=== PATIENT | male | born 1995 | race Caucasian/White ===

== ENCOUNTER 2017-05-20 15:23 | Inpatient (IN) | payer BC ==
[~2017-05-20] VITALS: Ht 188 cm; Wt 80.2 kg
[2017-05-20] MEDS ORDERED: KETOROLAC TROMETHAMINE 30 MG/ML VIAL IM STA (15:35)
--- NOTE | 2017-05-20 15:37 | EMERGENCY ROOM VISIT NOTE ---
History Report prepared by Esther: Ewa Singletary Under the Supervision of: Dr. Severino Ellsworth M.D. First contact with patient: 15:26 Stated Complaint: RIB PAIN/SOB History of Present Illness The patient is a 22 year old male who presents to the Emergency Room with complaints of left rib pain beginning at 1500 today. He was playing lacrosse when he was hit with a stick on the left side of his back and chest. The patient rates his pain as a 9/10 in severity and states it is "sharp." He has SOB but denies any abdominal pain, LOC, or hitting his head. When asked, the patient denies wanting anything for pain. Source of History: patient, EMS Onset: 1500 today Position: other (left ribs) Symptom Intensity: 9/10 in severity Quality: sharp Associated Symptoms: + SOB, No LOC Review of Systems See HPI for pertinent positives and negatives. A total of ten systems were reviewed and were otherwise negative. Past Medical & Surgical Medical Problems: (1) Pneumothorax, left Family History Patient reports no known family medical history. Social History Smoking Status: Unknown if Ever Smoked Smokeless Tobacco Use: Unknown Occupation Status: student Current/Historical Medications No Active Prescriptions or Reported Meds Allergies Coded Allergies: Sulfa Antibiotics (Unverified Adverse Reaction, Intermediate, ITCHY, ) Physical Exam Vital Signs Date Time Temp Pulse Resp B/P (MAP) Pulse Ox O2 Delivery O2 Flow Rate FiO2 05/20/17 17:39 79 18 137/76 100 Non-Rebreather 05/20/17 16:34 79 18 131/75 96 Room Air 05/20/17 15:37 87 05/20/17 15:32 36.7 89 20 153/86 96 Room Air Physical Exam Physical Exam GENERAL: He is oriented to person, place, and time. He appears well-developed and well-nourished. He does not appear distressed. ____ HENT: Exam performed. Head: Normocephalic and atraumatic. Right Ear: External ear normal. No mastoid tenderness. Left Ear: External ear normal. No mastoid tenderness. Mouth/Throat: The oropharynx is clear and moist. No trismus in the jaw. No dental abscesses or uvula swelling. No oropharyngeal exudate or tonsillar abscesses. ____ EYES: Conjunctivae and EOM are normal. Pupils are equal, round, and reactive to light. Right eye exhibits no discharge. Left eye exhibits no discharge. No scleral icterus. ____ NECK: Normal range of motion. Neck supple. No JVD present. No spinous process tenderness present. No carotid bruit present. No rigidity. No tracheal deviation and normal range of motion present. No Brudzinski's sign and no Kernig 's sign noted. ____ CV: Normal rate, regular rhythm, normal heart sounds and intact distal pulses. There is no peripheral edema. Palpable radial pulses bue. ____ PULM/CHEST: Effort normal and breath sounds normal. No respiratory distress. No stridor. He has no wheezes. He has no rales. Chest Wall: Pain on palpation of the left lateral ribs 4-10 ABD: The abdomen is soft. Bowel sounds are normal. He has no distension. No mass is present. There is no tenderness. There is no rebound, no guarding, no Islas's sign and no tenderness at McBurney's point. Rovsig negative MUSC/SKEL: Normal range of motion. There is no peripheral edema, tenderness or deformity. LYMPH: No cervical adenopathy. ____ NEURO: He is alert and oriented to person, place, and time. He has normal strength. No cranial nerve deficit or sensory deficit. Coordination and gait normal. GCS eye subscore is 4. GCS verbal subscore is 5. GCS motor subscore is 6. Cerebellar tests wnl. ____ SKIN: Skin is warm and dry. He is not diaphoretic. ____ PSYCH: He has a normal mood and affect. His behavior is normal. Judgment and thought content normal. ____ Medical Decision & Procedures ER Provider Diagnostic Interpretation: Radiology results as stated below per my review and radiologist interpretation: L RIBS UNILATERAL WITH PA CHEST CLINICAL HISTORY: rib pain got hit with lacrosse stick 30 mins ago COMPARISON STUDY: None. FINDINGS: Small left apical pneumothorax demonstrating a maximal pleural gap of 3.5 cm. The heart is normal in size. The right lung is clear. No pleural effusions. No definite rib fracture identified. Hazy appearance to the left lung base may be due to overlapping soft tissue. IMPRESSION: 1. Small left pneumothorax with a maximal pleural gap of 3.5 cm. No mediastinal shift. 2. No definite rib fractures identified. However, given the pneumothorax, an occult left sided rib fracture is suspected. 3. Hazy appearance the left lower lung zone which could be due to overlapping soft tissue. Consider PA and lateral views of the chest once the patient is stabilized to exclude the possibility of a lung abnormality/contusion. Electronically signed by: Dejuan Lorenzo M.D. 05/20/2017 5:02 PM Dictated Date/Time: 05/20/2017 4:54 PM CHEST ONE VIEW PORTABLE HISTORY: left pneumothorax COMPARISON: Chest 05/20/2017. FINDINGS: Small left apical pneumothorax is not significant changed. This demonstrates a maximal pleural gap of 3.5 cm. Hazy appearance to the left lower lung zone. Right lung remains clear. The heart is normal in size. No pleural effusions. No mediastinal shift. IMPRESSION: 1. Small to moderate left apical pneumothorax is similar to the prior study. 2. Nonspecific hazy appearance at the left lower lung zone also persists. This could represent atelectasis from the collapsing lung. Electronically signed by: Dejuan Lorenzo M.D. 05/20/2017 6:30 PM Dictated Date/Time: 05/20/2017 6:27 PM Laboratory Results 05/20/17 17:35 Red Blood Count 5.00, Mean Corpuscular Volume 90.2, Mean Corpuscular Hemoglobin 31.4, Mean Corpuscular Hemoglobin Concent 34.8, Mean Platelet Volume 8.8, Neutrophils (%) (Auto) 85.5, Lymphocytes (%) (Auto) 8.0, Monocytes (%) (Auto) 6.1, Eosinophils (%) (Auto) 0.0, Basophils (%) (Auto) 0.1, Neutrophils # (Auto) 10.87, Lymphocytes # (Auto) 1.02, Monocytes # (Auto) 0.78, Eosinophils # (Auto) 0.00, Basophils # (Auto) 0.01 05/20/17 17:35 Test 05/20/17 17:35 White Blood Count 12.72 K/uL (4.8-10.8) Red Blood Count 5.00 M/uL (4.7-6.1) Hemoglobin 15.7 g/dL (14.0-18.0) Hematocrit 45.1 % (42-52) Mean Corpuscular Volume 90.2 fL (80-100) Mean Corpuscular Hemoglobin 31.4 pg (25-34) Mean Corpuscular Hemoglobin Concent 34.8 g/dl (32-36) Platelet Count 244 K/uL (130-400) Mean Platelet Volume 8.8 fL (7.4-10.4) Neutrophils (%) (Auto) 85.5 % Lymphocytes (%) (Auto) 8.0 % Monocytes (%) (Auto) 6.1 % Eosinophils (%) (Auto) 0.0 % Basophils (%) (Auto) 0.1 % Neutrophils # (Auto) 10.87 K/uL (1.4-6.5) Lymphocytes # (Auto) 1.02 K/uL (1.2-3.4) Monocytes # (Auto) 0.78 K/uL (0.11-0.59) Eosinophils # (Auto) 0.00 K/uL (0-0.5) Basophils # (Auto) 0.01 K/uL (0-0.2) RDW Standard Deviation 41.6 fL (36.4-46.3) RDW Coefficient of Variation 12.7 % (11.5-14.5) Immature Granulocyte % (Auto) 0.3 % Immature Granulocyte # (Auto) 0.04 K/uL (0.00-0.02) Anion Gap 3.0 mmol/L (3-11) Est Creatinine Clear Calc Drug Dose 131.6 ml/min Estimated GFR () 123.9 Estimated GFR (Non- 106.9 BUN/Creatinine Ratio 16.1 (10-20) Calcium Level 10.0 mg/dl (8.5-10.1) Medications Administered Medications (Trade) Dose Ordered Sig/Shaista Route Start Time Stop Time Status Last Admin Dose Admin Ketorolac Tromethamine (Toradol Inj) 15 mg NOW STAT IM 05/20/17 15:35 05/20/17 15:36 DC 05/20/17 15:39 15 MG Sodium Chloride 1,000 ml @ 125 mls/hr Q8H STAT IV 05/20/17 17:27 05/21/17 01:26 05/20/17 17:39 125 MLS/HR Morphine Sulfate (MoRPHine SULFATE INJ) 1 mg Q1H PRN IV 05/20/17 18:15 06/03/17 18:14 05/20/17 19:34 1 MG Procedure Bedside FAST exam performed with ultrasound. Views were obtained in the hepatorenal subxyphoid splenorenal and suprapubic windows. No free fluid in the abdomen. No pericardial tamponade. ECG Per My Interpretation Indication: other (rib pain) Rate (beats per minute): 88 Rhythm: sinus rhythm Findings: other (DE interval 110 QRS interval 174 QTC 515. Early repolarization changes present, possible delta wave in leads V4-V6 concerning for WPW ) Change: Repeat EKG done at 1620 shows sinus rhythm, rate of 80, DE interval 114, QRS 174 , QTC 491, possible delta wave in leads V4-V6 concerning for WPW Repeat EKG done at 1621 shows sinus rhythm, rate of 80, DE interval 98, QRS 142 , QTC 475, possible delta wave concerning for WPW ED Course 1527: The patient was evaluated in room B6. A complete history and physical exam was performed. 1535: Toradol Inj 15 mg IM 1705: Patient has s small apical pneumothorax. Pneumothorax is very small, patient is in no acute respiratory distress and I do not plan on putting in chest tube. Patient and family are visiting from out of town in [place]. If needed be, they stated they would be more than willing to admit to hospital. I discussed this with the [facility] team physician and [facility] team physician and they are in agreement. I also discussed with all parties about the patient's EKG showing a possible WPW pattern. The patient states he has never had syncope or palpitations while working out. The [facility] team physician states that all players on the team have baseline EKGs and the patient has had an EKG before which shows no known abnormalities to his knowledge. He was given copies of the patient's EKG with the patient and family's permission and states he will have the cardiology team that helps manage the lacrosse team at [facility] follow-up with the patient. 172: I discussed the patient's case with Dr. Haines, [facility]. he agrees no chest tube and he will evaluate the patient 1727: Sodium Chloride 1000 ml @ 125 mls/hr 1815: Dr. Haines at bedside. Repeat chest x-ray showed no significant worsening in the size of the pneumothorax and. Dr. Haines says he will admit the patient. The family, both team doctors, and the patient are in agreement. Bedside fast exam negative Medical Decision 1705: Patient has s small apical pneumothorax. Pneumothorax is very small, patient is in no acute respiratory distress and I do not plan on putting in chest tube. Patient and family are visiting from out of town in [place]. If needed be, they stated they would be more than willing to admit to hospital. I discussed this with the [facility] team physician and [facility] team physician and they are in agreement. I also discussed with all parties about the patient's EKG showing a possible WPW pattern. The patient states he has never had syncope or palpitations while working out. The [facility] team physician states that all players on the team have baseline EKGs and the patient has had an EKG before which shows no known abnormalities to his knowledge. He was given copies of the patient's EKG with the patient and family's permission and states he will have the cardiology team that helps manage the lacrosse team at [facility] follow-up with the patient. 1722: I discussed the patient's case with Dr. Haines, [facility]. he agrees no chest tube and he will evaluate the patient 1727: Sodium Chloride 1000 ml @ 125 mls/hr 1815: Dr. Haines at bedside. Repeat chest x-ray showed no significant worsening in the size of the pneumothorax and. Dr. Haines says he will admit the patient. The family, both team doctors, and the patient are in agreement. Bedside fast exam negative Medication Reconcilliation Current Medication List: was personally reviewed by me Blood Pressure Screening Patient's blood pressure: Elevated blood pressure Blood pressure disposition: Elevated BP felt to be situational Consults Time Called: 171 Consulting Physician: Dr. Haines, [facility] Returned Call: 1722 I discussed the patient's case with Dr. Haines [facility]. He will come and evaluate the patient. Impression Primary Impression: Pneumothorax Additional Impression: WPW (Syxji-Lgdzopitf-Awlux syndrome) Scribe Attestation The scribe's documentation has been prepared under my direction and personally reviewed by me in its entirety. I confirm that the note above accurately reflects all work, treatment, procedures, and medical decision making performed by me. The chart was completed utilizing [employer] Speech voice recognition software. Grammatical errors, random word insertions, pronoun errors, and incomplete sentences are an occasional consequence of this system due to software limitations, ambient noise, and hardware issues. Any formal questions or concerns about the content, text, or information contained within the body of this dictation should be directly addressed to the physician for clarification. Departure Information Dispostion Being Evaluated By Hospitalist (Dr. Haines, [facility]) Prescriptions No Active Prescriptions or Reported Meds Problem Qualifiers Primary Impression: Pneumothorax Pneumothorax type: traumatic Encounter type: initial encounter Qualified Codes: S27.0XXA - Traumatic pneumothorax, initial encounter
--- NOTE | 2017-05-20 17:03 | DIAGNOSTIC IMAGING REPORT ---
L RIBS UNILATERAL WITH PA CHEST CLINICAL HISTORY: rib pain got hit with lacrosse stick 30 mins ago COMPARISON STUDY: None. FINDINGS: Small left apical pneumothorax demonstrating a maximal pleural gap of 3.5 cm. The heart is normal in size. The right lung is clear. No pleural effusions. No definite rib fracture identified. Hazy appearance to the left lung base may be due to overlapping soft tissue. IMPRESSION: 1. Small left pneumothorax with a maximal pleural gap of 3.5 cm. No mediastinal shift. 2. No definite rib fractures identified. However, given the pneumothorax, an occult left sided rib fracture is suspected. 3. Hazy appearance the left lower lung zone which could be due to overlapping soft tissue. Consider PA and lateral views of the chest once the patient is stabilized to exclude the possibility of a lung abnormality/contusion. Electronically signed by: Dejuan Lorenzo M.D. 05/20/2017 5:02 PM Dictated Date/Time: 05/20/2017 4:54 PM
[2017-05-20] MEDS ORDERED: SODIUM CHLORIDE 0.9% 1000ML 1,000 ML IV STA (17:27)
[2017-05-20 17:48] LABS: BASO % 0.1 %; BASO ABS # 0.01 K/uL (0-0.2); HEMATOCRIT 45.1 % (42-52); HEMOGLOBIN 15.7 g/dL (14.0-18.0); IG# 0.04 K/uL (0.00-0.02); LYMPH ABS # 1.02 K/uL (1.2-3.4); MEAN CELL VOLUME 90.2 fL (80-100); MEAN CORPUSCULAR HEMOGLOBIN 31.4 pg (25-34); MEAN CORPUSCULAR HGB CONC 34.8 g/dl (32-36); MEAN PLATELET VOLUME 8.8 fL (7.4-10.4); MONO % 6.1 %; MONO ABS # 0.78 K/uL (0.11-0.59); NEUT % 85.5 %; NEUT ABS # 10.87 K/uL (1.4-6.5); PLATELET COUNT 244 K/uL (130-400); RED CELL DISTRIBUTION WIDTH CV 12.7 % (11.5-14.5); RED CELL DISTRIBUTION WIDTH SD 41.6 fL (36.4-46.3); WHITE BLOOD COUNT 12.72 K/uL (4.8-10.8)
[2017-05-20 18:05] LABS: CREATININE 0.99 mg/dl (0.60-1.40); POTASSIUM 4.3 mmol/L (3.5-5.1)
[2017-05-20] MEDS ORDERED: KETOROLAC TROMETHAMINE 15 MG/ML VIAL IV PRN (18:15)
[2017-05-20] MEDS ORDERED: ACETAMINOPHEN 325 MG TAB PO PRN (18:15)
--- NOTE | 2017-05-20 18:32 | DIAGNOSTIC IMAGING REPORT ---
CHEST ONE VIEW PORTABLE HISTORY: left pneumothorax COMPARISON: Chest 05/20/2017. FINDINGS: Small left apical pneumothorax is not significant changed. This demonstrates a maximal pleural gap of 3.5 cm. Hazy appearance to the left lower lung zone. Right lung remains clear. The heart is normal in size. No pleural effusions. No mediastinal shift. IMPRESSION: 1. Small to moderate left apical pneumothorax is similar to the prior study. 2. Nonspecific hazy appearance at the left lower lung zone also persists. This could represent atelectasis from the collapsing lung. Electronically signed by: Dejuan Lorenzo M.D. 05/20/2017 6:30 PM Dictated Date/Time: 05/20/2017 6:27 PM
[2017-05-20 18:55] VITALS: O2SAT 99; Ht 188 cm; Wt 80.2 kg
[2017-05-20] MEDS: MoRPHine SULFATE 2 MG/ML CARP IV PRN ×3 (19:34→23:47)
[2017-05-20 19:45] VITALS: BP 138/75; PULSE 66; TEMP 36.8; O2SAT 99
[2017-05-20 20:18] LABS: INR 1.1 (0.9-1.1); PTT PATIENT 25.1 SECONDS (21.0-31.0)
--- NOTE | 2017-05-20 20:20 | HISTORY & PHYSICAL EXAMINATION ---
DATE OF ADMISSION: 05/20/2017 REASON FOR CONSULTATION: Traumatic left pneumothorax. HISTORY OF PRESENT ILLNESS: This is a 22-year-old healthy nonsmoking male who is a senior at [employer], and in a lacrosse game with [employer] today, patient suffered a blunt trauma to his left mid back. He had immediate pain. He played several more minutes; however, he developed increasing pain and was brought here to the Emergency Room where he was found to have a pneumothorax. It appears to be at least 3 cm from the apex. The patient really has no shortness of breath. He is on 100% nonrebreather at 100% saturations. Vital signs are stable. His parents and the team doctor from [employer] are present at the bedside. PAST MEDICAL HISTORY: None. PAST SURGICAL HISTORY: None. MEDICATIONS: Motrin p.r.n. ALLERGIES: SULFA ANTIBIOTICS WHICH RESULT IN HIVES. 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 He does not smoke. FAMILY MEDICAL HISTORY: The patient is one of 8 siblings, all of whom are healthy. His parents are at the bedside and healthy. REVIEW OF SYSTEMS: 10 systems are reviewed. The patient really has no medical issues other than some pain as would be expected from playing Lacrosse. He has never had an operation. PHYSICAL EXAMINATION: GENERAL: This is a well-developed and well-nourished male who stands 6 feet 2 inches tall and weighs 177 pounds. He is awake and alert. HEENT: His extraocular movements are intact. Pupils are equal, round, and reactive. Sclerae are anicteric. Tongue is midline. Teeth are in excellent repair. NECK: Supple. He has no tracheal deviation, no neck vein distention. RESPIRATORY: He does have mildly decreased breath sounds on the left side. CARDIOVASCULAR: He has a regular rate and rhythm, and his heart rate is in 70s. MUSCULOSKELETAL: I inspected his back. He has no crepitus, no ecchymosis. GASTROINTESTINAL: His abdomen is soft and nontender. EXTREMITIES: He has no peripheral edema. He has no joint effusions. He has excellent peripheral pulses. NEUROLOGIC: He is awake, alert, oriented, and without focal deficits. ASSESSMENT AND PLAN: Traumatic left chest trauma with resultant pneumothorax. We are going to admit him given the size of this and keep him on oxygen and check another film in the morning. If it is stable, we will let him go home with his parents in the morning. If not, he may require a chest tube.
[2017-05-20 23:10] VITALS: BP 124/68; PULSE 64; TEMP 36.7; O2SAT 99
[2017-05-21 07:00] VITALS: BP 127/72; PULSE 53; TEMP 36.7; O2SAT 99
--- NOTE | 2017-05-21 08:55 | DIAGNOSTIC IMAGING REPORT ---
CHEST ONE VIEW PORTABLE CLINICAL HISTORY: 22 years-old Male presenting with Pneumothorax. TECHNIQUE: Portable upright AP view of the chest was obtained. COMPARISON: None. FINDINGS: Cardiomediastinal silhouette normal. Persistent moderate left apical pneumothorax with a pleural separation of 3.8 cm, slightly increased from prior. Additionally, suggestion of a opacity in the left lower lung. There may be central cavitation. Osseous structures normal. Upper abdomen normal. IMPRESSION: 1. Persistent moderate left apical pneumothorax, which is stable to slightly increased from prior. 2. Suggestion of a left basilar infiltrate with possible central cavitation. Further evaluation with chest CT is recommended. The report will be called/faxed according to standard departmental protocol. Electronically signed by: Tristan Gonzales M.D. 05/21/2017 8:54 AM Dictated Date/Time: 05/21/2017 8:52 AM
[2017-05-21] MEDS ORDERED: ENOXAPARIN 40 MG/0.4 ML SYR SQ SCH (09:00)
[2017-05-21] MEDS ORDERED: ULT50X PO (09:16)
--- NOTE | 2017-05-21 09:22 | Discharge Instructions ---
Discharge Instructions Date of Service May 21, 2017. Visit Reason for Visit: Pneumothorax, Left Discharge Discharge Diagnosis / Problem: blunt chest trauma with left pneumothorax Discharge Goals Goal(s): Decrease discomfort Activity Recommendations Activity Limitations: as noted below Lifting Limitations: gradually increase as tolerated Exercise/Sports Limitations: until after follow-up appointment (With the team benjamín and strainer tender.) Shower/Bathe: no limitations Driving or Machine Use: After cleared by team doctor and strainer tender. Anesthesia . Post Anesthesia Instructions: If you have had General Anesthesia or IV Sedation: * Do not drive today. * Resume driving when surgeon permits. * Do not make important decisions or sign legal documents today. * Call surgeon for: 1. Temperature elevations greater than 101 degrees F. 2. Uncontrollable pain. 3. Excessive bleeding. 4. Persistent nausea and vomiting. 5. Medication intolerance (nausea, vomiting or rash). * For nausea and vomiting use only clear liquids such as: tea, soda, bouillon until nausea subsides, then gradually increase diet as tolerated. * If you have any concerns or questions, call your surgeon's office. If physician is unavailable and it is an emergency, call 911 or go to the nearest emergency room. . Diet Recommendations Recommended Home Diet: no limitations Pending Studies Studies pending at discharge: no Medical Emergencies . Who to Call and When: Medical Emergencies: If at any time you feel your situation is an emergency, please call 911 immediately. . Non-Emergent Contact Non-Emergency issues call your: Specialist (Team doctor and strainer tender) Call Non-Emergent contact if: your pain is worsening (Call Dr Haines on his cell phone for any problems.) . . "Provider Documentation" section prepared by Kiran Haines. .
[2017-05-21 09:35] VITALS: BP 127/72; PULSE 53; TEMP 36.7; O2SAT 99
[2017-05-21 10:05] VITALS: O2SAT 97
--- NOTE | 2017-05-21 10:32 | DISCHARGE SUMMARY ---
DISCHARGE DIAGNOSES: 1. Left posterior chest trauma with assumed rib fracture. 2. Blunt chest trauma with pneumothorax. 3. Zjkil-Lkujqyxmm-Xjtyv. 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 During a game at [employer] yesterday, the patient suffered a blunt injury where he caught knee to his left posterior back. He played for several more minutes, but had increasing pain and was brought to the Emergency Room where an x-ray showed a pneumothorax. I admitted the patient. He did not appear to have an effusion and he was oxygenating well, but he was having considerable pain. I had a long discussion with the patient and his parents and the team doctor and we elected to proceed with admission to make sure this pneumothorax did not enlarge; however, I did not feel it was large enough to warrant placing a chest tube. An EKG was obtained at that time which suggested Ftznf-Leuftztop-Cgmrl. The patient was stable overnight. Pain was well controlled with Toradol. I discharged him the following day when the x-ray showed no increase in the pneumothorax, although it is a good 3 cm away from the apex. He has good saturations. His vital signs have been stable. Labs were stable. I asked Dr. Tay Baca from cardiology to evaluate as it does appear the patient has Mgzje-Oronmkzzp-Dvnzk and in retrospect, he does have a history of occasionally feeling his heart racing. I discharged the patient in the morning of 05/21/2017. He is to follow up with an x-ray tomorrow as well as a cardiology evaluation in the future back in [place]. I gave the patient and his parents my cell phone number and told him to call me should any problems arise. He was quite stable upon his discharge this morning.
--- NOTE | 2017-05-21 10:48 | Cardiology Consultation ---
Cardiology Consultation Date of Consultation: May 21, 2017. Requesting Physician: Dr. Haines Reason for Consultation: Abnormal ECG Pt evaluation today including: conversation w/ patient, conversation w/ family , physical exam, lab review, review of studies, review of inpatient medication list History of Present Illness This is a very pleasant and healthy 22-year-old male who presented to the emergency room with left rib pain after playing lacrosse. He was identified as having a rib fracture and was kept overnight. Admission electrocardiography was abnormal, showing preexcitation. He has no known cardiovascular history, he did have an electrocardiogram prior to participating in sports and was not told that it was abnormal. He has no limitations in activity and can play sports at a high level. He has never had symptoms to suggest SVT and has never had presyncope or syncope. Past Medical/Surgical History No significant past medical history Family History Patient reports no known family medical history. Social History Smoking Status: Never Smoker History of Alcohol Use: Yes (10 drinks a month) Review of Systems Constitutional: No fever, No weight loss, No weakness Respiratory: No cough, No wheezing, No shortness of breath, No dyspnea on exertion Cardiac: No chest pain, No orthopnea, No PND, No edema, No palpitations Abdomen: + see HPI, + problem reported (Pain from a fractured rib), No pain, No nausea, No vomiting, No diarrhea, No GI bleeding Male : No urinary frequency, No nocturia more than once/night, No slowing stream, No sexual dysfunction Neurologic: No paralysis, No weakness, No numbness/tingling, No balance problems Heme: No abnormal bleeding/bruising, No clotting problems Endo: No fatigue Skin: No problem reported All Other Systems: Reviewed and Negative Allergies Coded Allergies: Sulfa Antibiotics (Unverified Adverse Reaction, Intermediate, ITCHY, ) Medications Current Inpatient Medications Medications (Trade) Dose Ordered Sig/Shaista Route Start Time Stop Time Status Last Admin Dose Admin Enoxaparin Sodium (Lovenox Inj) 40 mg DAILY SQ 05/21/17 09:00 06/20/17 08:59 05/21/17 09:45 40 MG Acetaminophen (Tylenol Tab) 650 mg Q6H PRN PO 05/20/17 18:15 06/19/17 18:14 05/21/17 10:04 650 MG Morphine Sulfate (MoRPHine SULFATE INJ) 1 mg Q1H PRN IV 05/20/17 18:15 06/03/17 18:14 05/20/17 23:47 1 MG Ketorolac Tromethamine (Toradol Inj) 15 mg Q6H PRN IV 05/20/17 18:15 05/25/17 18:14 05/21/17 03:46 15 MG Physical Exam Vital Signs Past 12 Hours Date Time Temp Pulse Resp B/P (MAP) Pulse Ox O2 Delivery O2 Flow Rate FiO2 05/21/17 09:35 36.7 53 14 99 Room Air 05/21/17 07:00 36.7 53 14 127/72 (90) 99 Nasal Cannula 2.0 05/21/17 00:00 Room Air 05/20/17 23:10 36.7 64 16 124/68 (86) 99 Room Air Constitutional: General Apperance: heathly-appearing Level of Distress: NAD Psychiatric: Mental Status: active & alert Head: normocephalic Eyes: EOM: EOMI ENMT: normal ENT inspection, hearing grossly normal Neck: supple, no masses Lungs: Respiratory effort: no dyspnea, good air movement Auscultation: breath sounds normal, no wheezing Cardiovascular: Heart Auscultation: RRR, no murmurs, no rubs, no gallops Peripheral Pulses: Bruits: none appreciated Abdomen: Bowel Sounds: normal Inspection & Palpation: soft, no tenderness, guarding & rebound, no masses Musculoskeletal: normal strength (5/5 throughout) Extremities: no edema Neurologic: Cranial Nerves: grossly intact Sensation: grossly intact Data Laboratory Results: Last 24 Hours Test 05/20/17 17:35 White Blood Count 12.72 K/uL Red Blood Count 5.00 M/uL Hemoglobin 15.7 g/dL Hematocrit 45.1 % Mean Corpuscular Volume 90.2 fL Mean Corpuscular Hemoglobin 31.4 pg Mean Corpuscular Hemoglobin Concent 34.8 g/dl Platelet Count 244 K/uL Mean Platelet Volume 8.8 fL Neutrophils (%) (Auto) 85.5 % Lymphocytes (%) (Auto) 8.0 % Monocytes (%) (Auto) 6.1 % Eosinophils (%) (Auto) 0.0 % Basophils (%) (Auto) 0.1 % Neutrophils # (Auto) 10.87 K/uL Lymphocytes # (Auto) 1.02 K/uL Monocytes # (Auto) 0.78 K/uL Eosinophils # (Auto) 0.00 K/uL Basophils # (Auto) 0.01 K/uL RDW Standard Deviation 41.6 fL RDW Coefficient of Variation 12.7 % Immature Granulocyte % (Auto) 0.3 % Immature Granulocyte # (Auto) 0.04 K/uL Prothrombin Time 11.4 SECONDS Prothromb Time International Ratio 1.1 Activated Partial Thromboplast Time 25.1 SECONDS Partial Thromboplastin Ratio 1.0 Sodium Level 139 mmol/L Potassium Level 4.3 mmol/L Chloride Level 108 mmol/L Carbon Dioxide Level 28 mmol/L Anion Gap 3.0 mmol/L Blood Urea Nitrogen 16 mg/dl Creatinine 0.99 mg/dl Est Creatinine Clear Calc Drug Dose 131.6 ml/min Estimated GFR () 123.9 Estimated GFR (Non- 106.9 BUN/Creatinine Ratio 16.1 Random Glucose 92 mg/dl Calcium Level 10.0 mg/dl EKG: Sinus rhythm with preexcitation, 3 electrocardiograms were performed and they all showed a similar pattern. Assessment & Plan 1. Ventricular preexcitation: His electrocardiogram here shows consistent preexcitation, however he seems to have no symptoms to suggest clinical SVT. I do not have his electrocardiogram from a number of years ago but that should be evaluated to see whether preexcitation was present at that time. In any case he should probably see an vice president of communications, he is going to be returning to [facility] today and I discussed follow-up with his family. His dance coach I believe was already arranging some type of cardiology follow-up, but I do not know if that was for the preexcitation, and may have been because of a computer reading of left bundle branch block. I did mention treatment including ablation with them but would leave the decision as to whether that should be done with the vice president of communications that he sees. I discussed this with the patient and his parents who were in the room. I have not arranged any follow- up since he will be traveling to [place]. Thank you for allowing me to participate in his care.
== END 2017-05-21 10:15 | disposition home or self-care (01) | DRG 201 ==
LOC: C.EDB 15:25 → C.MSN 18:18 → ENRESERV 18:34
PROVIDERS: ADMIT Surgery; ATTEND Surgery
DX: S27.0XXA Traumatic pneumothorax, initial encounter (principal); I45.6 Pre-excitation syndrome; W21.89XA Striking against or struck by other sports equipment, initial encounter; Y93.65 Activity, lacrosse and field hockey; Y92.328 Other athletic field as the place of occurrence of the external cause; Z88.2 Allergy status to sulfonamides